=== PATIENT | male | born 1955 | race Caucasian/White ===

== ENCOUNTER 2018-09-02 13:43 | Emergency (ER) | payer BC ==
[2018-09-02] MEDS ORDERED: Sodium Chloride 0.9% 1,000 ML IV SCH (13:50)
[2018-09-02] MEDS ORDERED: fentaNYL 100 MCG/2 ML SDV ONE ×2 (13:51→13:55)
[2018-09-02] MEDS ORDERED: Nitroglycerin/D5W 25 MG/250 ML BOTTLE ONE (13:57)
[2018-09-02] MEDS ORDERED: Aspirin 81 MG Tab.Chew ONE (13:57)
[2018-09-02] MEDS ORDERED: Midazolam 1 MG/ML 2 ML SDV IVPUSH ONE (13:58)
[2018-09-02] MEDS ORDERED: fentaNYL 100 MCG/2 ML SDV IVPUSH ONE (13:58)
[2018-09-02] MEDS ORDERED: Amiodarone In Dextrose,Iso-Osm 150 MG in Premix Bag 1 BAG IV ONE ×2 (13:59)
[2018-09-02] MEDS ORDERED: Nitroglycerin/D5W 25 MG/250 ML BOTTLE IV SCH (14:00)
[2018-09-02] MEDS ORDERED: Aspirin 81 MG Tab.Chew PO ONE (14:01)
--- NOTE | 2018-09-02 14:20 | EDM.PDOC ---
ED HPI GENERAL MEDICAL PROBLEM - General Chief Complaint: Cardiovascular Problem Stated Complaint: [facility] Time Seen by Provider: 09/02/18 13:43 Source of Information: Reports: Patient, EMS History Limitations: Reports: No Limitations - History of Present Illness INITIAL COMMENTS - FREE TEXT/NARRATIVE: 62-year-old male presents to the ED by ambulance. Patient states that about 1240 1245 hrs. mild standard time he developed diaphoresis and severe central chest pain lightheadedness and dizziness. He recognized that his heart was likely going too fast. He is appears this before. 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 It' s unclear a bit as to how long it took him to call the eminence but the call received was at 1313 hrs. They were on scene at 1324 hrs. Left scene at 1335 hrs. Arrived at the hospital at 1348 hrs. Patient during that timeframe was in sustained V. tach the entire timeframe. Of note the patient does have a defibrillator pacemaker in place for the second time. He believes the first one was placed in [facility] in 1999. Had a myocardial infarction in 1998 in [place], [place] and had 2 stents placed any stents and attempt to place a third one failed. He suffered quite significant cardiac damage and did have problems with congestive failure and required a constant pacing device about a year later. The last pacemaker was placed in [facility] about 5 months ago. His is because the batteries failed on the initial one even though he was told that on testing it had 2 years of battery life left in it. Recall ever being shocked by his defibrillator. They told him however that it had gone off on multiple occasions and he was just not aware of it. It appeared while he was in the ED that his defibrillator probably was going off and we can see slight twitching of his pectoralis musculature on the left side but there was no evidence on the monitor that a shock at been sent. As we were preparing to cardiovert/defibrillate him he converted back to paced rhythm in the 70s. He is primarily paced at 70/m. Patient's initial chest pain was 10 out of 10. He was diaphoretic cool and clammy upon arrival. Is alert and oriented and did have good radial pulses. Initial blood pressure was 96 systolic. Once the patient converted he was also in the process of receiving amiodarone 150 mg IV over 10 minutes. Then he was placed on amiodarone drip at 60 mg per hour. He was then placed on a nitroglycerin drip at 10 mcg/m due to sustained chest pain. His blood pressure however fell down to 102 systolic and the nitroglycerin drip was stopped. Chest pain didn't want her down to between 1 and 2 out of 10 over. Of 20-30 minutes after he converted spontaneously. Chest x-ray done shows hyperinflated lung rush marked cardiomegaly. Evidence of mild congestive failure with prominence of the right pulmonary artery. The left costophrenic angle is not visualized due to cardiac border abutting his chest wall. Labs have been drawn but are not yet available. Second ECG reveals atrial sensed ventricular paced rhythm at 70/m. Onset: Today Onset Date: 09/02/18 Onset Time: 12:40 Duration: Minutes: Location: Reports: Chest Quality: Reports: Other (Diaphoresis shortness of breath severe chest pain monitor shows sustained V. tach at 180s) Severity: Severe Improves with: Reports: None Worsens with: Reports: None Context: Reports: Other (Spontaneous occurrence while at work at approximately 1245 hrs.). Denies: Activity, Exercise, Lifting, Sick Contact, Trauma Associated Symptoms: Reports: Chest Pain (10 on a 10 central chest rating to to his back under her shoulder blades), Shortness of Breath, Weakness. 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 (see below) (None.) Chest Pain Score (Numeric/FACES): 7 - Related Data Allergies Allergy/AdvReac Type Severity Reaction Status Date / Time No Known Allergies Allergy Verified 09/02/18 14:42 Home Meds: Home Meds Bumetanide 1 mg PO DAILY 09/02/18 [History] Fenofibrate 145 mg PO DAILY 09/02/18 [History] Hydrocodone/Acetaminophen [Hydrocodon-Acetaminophen 5-325] 1 tab PO Q4H PRN 03/14 [History] Lisinopril [Prinivil] 20 mg PO DAILY 09/02/18 [History] Nabumetone 500 mg PO BID 09/02/18 [History] Spironolactone 50 mg PO DAILY 09/02/18 [History] atorvaSTATin [Lipitor] 40 mg PO DAILY 09/02/18 [History] glipiZIDE [Glipizide Xl] 5 mg PO DAILY 09/02/18 [History] metFORMIN [Glucophage XR] 1,000 mg PO BID 09/02/18 [History] Past Medical History Cardiovascular History: Reports: Heart Failure, High Cholesterol, Hypertension ( Large anterior wall WI apparently at that time 1998), [place], Pacemaker (Pacemaker defibrillator), SOB on Exertion, Stents (2 placed in 1998 [facility]) Respiratory History: Reports: COPD Endocrine/Metabolic History: Reports: Diabetes, Type II (Controlled with metformin and glipizide and diet.), Obesity/BMI 30+ Social & Family History - Living Situation & Occupation Living situation: Reports: Occupation: Employed ED ROS GENERAL - Review of Systems Review Of Systems: See Below Constitutional: Reports: Malaise, Weakness, Fatigue. Denies: Fever, Chills HEENT: Reports: Other (He had recent surgery in his right ear with stitches still present behind the right ear due to a basal cell carcinoma I presumably within the ear canal.) Respiratory: Reports: Shortness of Breath Cardiovascular: Reports: Chest Pain, Blood Pressure Problem (History of present illness), Dyspnea on Exertion, Edema, Lightheadedness. Denies: Claudication, Orthopnea Endocrine: Reports: Fatigue, High Glucose GI/Abdominal: Reports: No Symptoms : Reports: Frequency Musculoskeletal: Reports: Back Pain Skin: Reports: No Symptoms Neurological: Reports: No Symptoms Psychiatric: Reports: No Symptoms Hematologic/Lymphatic: Reports: No Symptoms Immunologic: Reports: No Symptoms ED EXAM, GENERAL - Physical Exam Exam: See Below Exam Limited By: No Limitations General Appearance: Alert, Moderate Distress, Other (Chest pain is 10 out of 10. Monitor shows sustained V. tach in the 180s.) Eye Exam: Bilateral Eye: Normal Inspection Ears: Normal TMs Ear Exam: Bilateral Ear: Other (Patient had recent surgery on his right ear and has sutures behind his right ear. Apparently had a basal cell carcinoma resected from the inner ear canal 6 days ago.) Throat/Mouth: Normal Inspection, Normal Lips, Normal Oropharynx Neck: Normal Inspection, Supple, Non-Tender, Full Range of Motion. No: Carotid Bruit, Lymphadenopathy (L), Lymphadenopathy (R) Respiratory/Chest: Lungs Clear, Respiratory Distress (Moderate tachypnea 26/m initially. O2 sats 98% on 2 L.), Decreased Breath Sounds (Diminished air into the lower 25% lung rush bilaterally.) Cardiovascular: Tachycardia (Monitor shows V. tach in the 180s.), Other (For. Pulses are slightly weak in his feet as compared to the radials.) Peripheral Pulses: 1+: Posterior Tibial (L), Posterior Tibial (R), Dorsalis Pedis (L), Dorsalis Pedis (R), 2+: Radial (L), Radial (R) GI/Abdominal: Normal Bowel Sounds, Soft, Non-Tender, No Organomegaly, Other ( The abdomen is markedly obese. Abdominal girth limits ability to palpate solid organs.) Back Exam: Normal Inspection, Full Range of Motion. No: CVA Tenderness (L), CVA Tenderness (R) Extremities: Normal Inspection, Normal Range of Motion, Non-Tender, No Pedal Edema Neurological: Alert, Oriented, CN II-XII Intact, Normal Cognition Psychiatric: Normal Affect, Normal Mood Skin Exam: Warm, Dry, Intact, Normal Color, No Rash EKG INTERPRETATION EKG Date: 09/02/18 Time: 13:47 Rhythm: Other (Wide-complex tachycardia i.e. V. tach sustained. One 80s) Rate (Beats/Min): 180 Five Points: LAD-Left Five Points Deviation (-56) P-Wave: Absent QRS: Wide EKG Interpretation Comments: Abnormal ECG Course - Vital Signs Last Recorded V/S: Last Vital Signs Temp 36.3 C 09/02/18 13:50 Pulse 72 09/02/18 14:35 Resp 18 09/02/18 13:50 BP 95/62 09/02/18 14:35 Pulse Ox 98 09/02/18 13:50 - Orders/Labs/Meds Orders: Active Orders 24 hr Category Date Time Status EKG 12 Lead [EKG Documentation Completion] [RC] STAT Care 09/02/18 13:57 Active EKG Documentation Completion [RC] STAT Care 09/02/18 14:01 Active CBC W/O DIFF,HEMOGRAM [HEME] MOTH@0700 Lab 09/05/18 07:00 Ordered CBC W/O DIFF,HEMOGRAM [HEME] MOTH@0700 Lab 09/09/18 07:00 Ordered CBC W/O DIFF,HEMOGRAM [HEME] MOTH@0700 Lab 09/12/18 07:00 Ordered CBC W/O DIFF,HEMOGRAM [HEME] MOTH@0700 Lab 09/16/18 07:00 Ordered CBC W/O DIFF,HEMOGRAM [HEME] MOTH@0700 Lab 09/19/18 07:00 Ordered CBC W/O DIFF,HEMOGRAM [HEME] MOTH@0700 Lab 09/23/18 07:00 Ordered LACTIC ACID [CHEM] Stat Lab 09/02/18 15:32 Received Amiodarone In Dextrose,Iso-Osm [Nexterone in Dextrose Med 09/02/18 14:00 Active 360 MG/200 ML] 360 mg in 200 ml IV ASDIRECTED Heparin Sodium/D5W [Heparin 25,000 Units in D5W 500 ML] Med 09/02/18 14:45 Active 25,000 units in 500 ml IV TITRATE Sodium Chloride 0.9% [Normal Saline] 1,000 ml Med 09/02/18 13:50 Active IV ASDIRECTED Medication Orders Amiodarone HCl/Dextrose (Nexterone In Dextrose 360 Mg/200 Ml) 360 mg in 200 mls @ 33.333 mls/hr IV ASDIRECTED DULCE MARIA; Protocol Last Admin: 09/02/18 14:07 Dose: 33.333 mls/hr Sodium Chloride (Normal Saline) 1,000 mls @ 250 mls/hr IV ASDIRECTED DULCE MARIA Last Admin: 09/02/18 14:03 Dose: 250 mls/hr Heparin Sodium/Dextrose (Heparin 25,000 Units In D5w 500 Ml) 25,000 units in 500 mls @ 20 mls/hr IV TITRATE [facility] Labs: Laboratory Tests 09/02/18 09/02/18 09/02/18 Range/Units 14:22 14:22 14:22 WBC 10.81 H (4.23-9.07) K/mm3 RBC 5.17 (4.63-6.08) M/mm3 Hgb 15.7 (13.7-17.5) gm/L Hct 46.6 (40.1-51.0) % MCV 90.1 (79.0-92.2) fl MCH 30.4 (25.7-32.2) pg MCHC 33.7 (32.2-35.5) g/dl RDW Std Deviation 44.0 H (35.1-43.9) fL Plt Count 308 (163-337) K/mm3 MPV 9.2 L (9.4-12.3) fl Neutrophils % (Manual) 77 H (40-60) % Band Neutrophils % 0 (0-10) % Lymphocytes % (Manual) 15 L (20-40) % Atypical Lymphs % 0 % Monocytes % (Manual) 7 (2-10) % Eosinophils % (Manual) 1 (0.8-7.0) % Basophils % (Manual) 0 L (0.2-1.2) Platelet Estimate Adequate Plt Morphology Comment Normal RBC Morph Comment Normal PT 11.9 (9.5-12.1) SECONDS INR 1.09 APTT 28 (24-31) SECONDS Sodium 140 (136-145) mEq/L Potassium 4.9 (3.5-5.1) mEq/L Chloride 104 (98-107) mEq/L Carbon Dioxide 23 (21-32) mEq/L Anion Gap 17.9 H (5-15) BUN 27 H (7-18) mg/dL Creatinine 1.7 H (0.7-1.3) mg/dL Est Cr Clr Drug Dosing 53.16 mL/min Estimated GFR (MDRD) 41 (>60) mL/min BUN/Creatinine Ratio 15.9 (14-18) Glucose 211 H (80-115) mg/dL Calcium 9.9 (8.5-10.1) mg/dL Magnesium 1.6 L (1.8-2.4) mg/dl Total Bilirubin 0.8 (0.2-1.0) mg/dL AST 32 (15-37) U/L ALT 61 (16-63) U/L Alkaline Phosphatase 67 (46-116) U/L CK-MB (CK-2) 2.4 (0-3.6) ng/ml Troponin I 0.060 H* (0.00-0.056) ng/mL NT-Pro-B Natriuret Pep (0-125) pg/mL Total Protein 7.5 (6.4-8.2) g/dl Albumin 4.3 (3.4-5.0) g/dl Globulin 3.2 gm/dL Albumin/Globulin Ratio 1.3 (1-2) 09/02/18 Range/Units 14:22 WBC (4.23-9.07) K/mm3 RBC (4.63-6.08) M/mm3 Hgb (13.7-17.5) gm/L Hct (40.1-51.0) % MCV (79.0-92.2) fl MCH (25.7-32.2) pg MCHC (32.2-35.5) g/dl RDW Std Deviation (35.1-43.9) fL Plt Count (163-337) K/mm3 MPV (9.4-12.3) fl Neutrophils % (Manual) (40-60) % Band Neutrophils % (0-10) % Lymphocytes % (Manual) (20-40) % Atypical Lymphs % % Monocytes % (Manual) (2-10) % Eosinophils % (Manual) (0.8-7.0) % Basophils % (Manual) (0.2-1.2) Platelet Estimate Plt Morphology Comment RBC Morph Comment PT (9.5-12.1) SECONDS INR APTT (24-31) SECONDS Sodium (136-145) mEq/L Potassium (3.5-5.1) mEq/L Chloride (98-107) mEq/L Carbon Dioxide (21-32) mEq/L Anion Gap (5-15) BUN (7-18) mg/dL Creatinine (0.7-1.3) mg/dL Est Cr Clr Drug Dosing mL/min Estimated GFR (MDRD) (>60) mL/min BUN/Creatinine Ratio (14-18) Glucose (80-115) mg/dL Calcium (8.5-10.1) mg/dL Magnesium (1.8-2.4) mg/dl Total Bilirubin (0.2-1.0) mg/dL AST (15-37) U/L ALT (16-63) U/L Alkaline Phosphatase (46-116) U/L CK-MB (CK-2) (0-3.6) ng/ml Troponin I (0.00-0.056) ng/mL NT-Pro-B Natriuret Pep 820 H (0-125) pg/mL Total Protein (6.4-8.2) g/dl Albumin (3.4-5.0) g/dl Globulin gm/dL Albumin/Globulin Ratio (1-2) Meds: Medications Generic Name Dose Route Start Last Admin Trade Name Goldie PRN Reason Stop Dose Admin Amiodarone HCl/Dextrose 360 mg in 200 mls @ 33.333 mls/hr 09/02/18 14:00 03/14 14:07 Nexterone In Dextrose 360 Mg/200 Ml IV 33.333 mls/hr ASDIRECTED DULCE MARIA Administration Protocol Sodium Chloride 1,000 mls @ 250 mls/hr 09/02/18 13:50 09/02/18 14:03 Normal Saline IV 250 mls/hr ASDIRECTED DULCE MARIA Administration Heparin Sodium/Dextrose 25,000 units in 500 mls @ 20 mls/hr 09/02/18 14:45 Heparin 25,000 Units In D5w 500 Ml IV TITRATE DULCE MARIA 1,000 UNITS/HR Discontinued Medications Generic Name Dose Route Start Last Admin Trade Name Goldie PRN Reason Stop Dose Admin Aspirin 324 mg 09/02/18 14:01 09/02/18 14:01 Aspirin PO 09/02/18 14:02 324 mg ONETIME ONE Administration Fentanyl Confirm 09/02/18 13:51 09/02/18 14:13 Sublimaze Administered 09/02/18 13:52 Not Given Dose 100 mcg .ROUTE .STK-MED ONE Fentanyl 100 mcg 09/02/18 13:58 09/02/18 13:59 Sublimaze IVPUSH 09/02/18 13:59 50 mcg ONETIME ONE Administration Heparin Sodium (Porcine) 5,000 units 09/02/18 14:44 09/02/18 14:49 Heparin Sodium IVPUSH 09/02/18 14:45 5,000 units ONETIME ONE Administration Amiodarone HCl/Dextrose 150 mg 100 mls @ 400 mls/hr 09/02/18 13:59 09/02/18 13:55 / Premix IV 09/02/18 14:13 400 mls/hr NOW ONE Administration Nitroglycerin/Dextrose 25 mg in 250 mls @ 6 mls/hr 09/02/18 14:00 09/02/18 14 :31 Nitroglycerin 25 Mg/D5w 250 Ml IV 0 mcg/min TITRATE DULCE MARIA 0 mls/hr Titration Protocol 10 MCG/MIN Midazolam HCl 2 mg 09/02/18 13:58 09/02/18 13:51 Versed 1 Mg/Ml IVPUSH 09/02/18 13:59 2 mg ONETIME ONE Administration - Radiology Interpretation Free Text/Narrative:: 62-year-old male arrives in the ED per ambulance in sustained V. tach. He started to feel symptomatic approximately 1240- 1245 hrs. today. He states he was walking in the shop with a rollover holes in each hand which wouldn't wait more than 20 pounds. She has a history of coronary disease having had myocardial infarction in 1998 when he was in [facility]. He had cardiac stenting done at that time [address] a third stent but could not get it in. He thinks that about a year later he required a defibrillator pacemaker placement. His allergies has had patient rhythm since that time. His first pacemaker battery proximal be 5 months ago when he was in [facility]. He had a new pacemaker placed at that time past apparently it's a [employer] pacemaker. Patient had IVs started in the ED and had received Versed 4 mg IV and then it was recognized that the first IV went interstitial. Second IVs were started. He received 100 g of fentanyl in preparation for etomidate next to provide sedation to have emergent diversion/defibrillation done. As we were ready to push the etomidate he converted back to a paced rhythm in the 80s. His chest pain eased up after this from a 10 gradually down to a 12 out of 10. Patient had amiodarone 150 mg given over 8 minutes and then 60 mg per hour drip started. Nitroglycerin drip started at 10 mcg/m due to persistent chest pain and he did receive 4 baby aspirins chewed. is no longer on Plavix after research of his med list. Decision made because of persistent chest pain and the possibility of thrombosis versus demand ischemia from the rapid rate to heparinize him. He was given 5000 unit bolus and 1000 units an hour. Chest x-ray reveals marked cardiomegaly him signs of congestive failure with prominence of the right pulmonary artery. Labs are pending. Colton with orchard worker at [facility] in [place] as well as Dr. Buckley hospitalist and Dr. Lockett in the ED. The patient be transferred to [facility] in [place] per helicopter service and he will go to the ED first for cardiology consult particular if he is still having chest pain. - Re-Assessments/Exams Free Text/Narrative Re-Assessment/Exam: 09/02/18 15:24 Labs reveal a white count of 10.81 with 77% neutrophils and no band cells reported. Hemoglobin is 15.7 with hematocrit of 46.6. MCV is 90.1. Platelet count 308,000. PT was 11.9 with an INR 1.09. PTT is 28. Sodium 140 with a potassium of 4.9. Chloride 104 with a bicarbonate of 23. And a gap is mildly elevated at 17.9. BUN was 27. Creatinine was 1.7. GFR is estimated to be 41 i.e. stage III chronic kidney disease. Glucose is elevated at 211. Patient is a known type II diabetic. Calcium is 9.9. Magnesium slightly low at 1.6. Bilirubin is 0.8. AST is 32. ALT is 61. Alkaline phosphatase normal at 67. CK- MB fraction is normal at 2.4. Troponin I 0.060. BNP is 820. Total protein is 7.5 with an albumin fraction of 4.3. Departure - Departure Time of Disposition: 14:50 Disposition: DC/Tfer to Acute Hospital 02 Reason for Transfer *Q: Other Condition: Fair Clinical Impression: Ventricular tachycardia (paroxysmal), Acute coronary syndrome Forms: ED Department Discharge Additional Instructions: Patient transferred to [facility] in [facility] for cardiology consultation and management. Try and obtain records from [facility] on pacemaker recently placed 5 months ago. Critical Care Note - Critical Care Note Total Time (mins): 60 - My Orders Last 24 Hours: My Active Orders 09/02/18 13:50 Sodium Chloride 0.9% [Normal Saline] 1,000 ml IV ASDIRECTED 09/02/18 13:57 EKG 12 Lead [EKG Documentation Completion] [RC] STAT 09/02/18 14:00 Amiodarone In Dextrose,Iso-Osm [Nexterone in Dextrose 360 MG/200 ML] 360 mg in 200 ml IV ASDIRECTED 09/02/18 14:01 EKG Documentation Completion [RC] STAT 09/02/18 14:45 Heparin Sodium/D5W [Heparin 25,000 Units in D5W 500 ML] 25,000 units in 500 ml IV TITRATE 09/02/18 15:32 LACTIC ACID [CHEM] Stat 09/05/18 07:00 CBC W/O DIFF,HEMOGRAM [HEME] MOTH@0700 19 07:00 CBC W/O DIFF,HEMOGRAM [HEME] MOTH@69909/12/18 07:00 CBC W/O DIFF,HEMOGRAM [HEME] MOTH@69909/16/18 07:00 CBC W/O DIFF,HEMOGRAM [HEME] MOTH@69909/19/18 07:00 CBC W/O DIFF,HEMOGRAM [HEME] MOTH@0709/23/18 07:00 CBC W/O DIFF,HEMOGRAM [HEME] MOTH@699 - Assessment/Plan Last 24 Hours: My Active Orders 09/02/18 13:50 Sodium Chloride 0.9% [Normal Saline] 1,000 ml IV ASDIRECTED 09/02/18 13:57 EKG 12 Lead [EKG Documentation Completion] [RC] STAT 09/02/18 14:00 Amiodarone In Dextrose,Iso-Osm [Nexterone in Dextrose 360 MG/200 ML] 360 mg in 200 ml IV ASDIRECTED 09/02/18 14:01 EKG Documentation Completion [RC] STAT 09/02/18 14:45 Heparin Sodium/D5W [Heparin 25,000 Units in D5W 500 ML] 25,000 units in 500 ml IV TITRATE 09/02/18 15:32 LACTIC ACID [CHEM] Stat 09/05/18 07:00 CBC W/O DIFF,HEMOGRAM [HEME] MOTH@69909/09/18 07:00 CBC W/O DIFF,HEMOGRAM [HEME] MOTH@69909/12/18 07:00 CBC W/O DIFF,HEMOGRAM [HEME] MOTH@69909/16/18 07:00 CBC W/O DIFF,HEMOGRAM [HEME] MOTH@69909/19/18 07:00 CBC W/O DIFF,HEMOGRAM [HEME] MOTH@69909/23/18 07:00 CBC W/O DIFF,HEMOGRAM [HEME] MOTH@699
--- NOTE | 2018-09-02 14:28 | CR ---
Chest: Portable view of the chest was obtained. Comparison: No prior chest x-ray. Heart size at the upper limits of normal. Upper mediastinum is normal. AICD is present. Lungs are clear with no acute parenchymal change. Impression: 1. Nothing acute is seen. Diagnostic code #2
[2018-09-02] MEDS ORDERED: Heparin Sodium 5,000 Units/ML Vial IVPUSH ONE (14:44)
[2018-09-02] MEDS ORDERED: Heparin Sodium/D5W 25,000 UNITS/500 ML BAG IV SCH (14:45)
[2018-09-02] MEDS ORDERED: Midazolam 1 MG/ML 5 ML SDV ONE (15:50)
== END 2018-09-02 15:20 ==
LOC: JD.ED 13:43
DX: I24.9 Acute ischemic heart disease, unspecified (principal); I47.2 Ventricular tachycardia; I11.0 Hypertensive heart disease with heart failure; I50.9 Heart failure, unspecified; E11.9 Type 2 diabetes mellitus without complications; I25.2 Old myocardial infarction; Z95.0 Presence of cardiac pacemaker; Z79.84 Long term (current) use of oral hypoglycemic drugs; Z79.899 Other long term (current) drug therapy; Z87.891 Personal history of nicotine dependence
CPT/HCPCS: 36415; 71045; 80053; 82553; 83605; 83735; 83880; 84484; 85007; 85027; 85610; 85730; 93005; 96365; 96367; 96375; 96376; 99285; A9270; J0282; J1644; J2250; J3010; J3490; J7040; 93010; 99291

== ENCOUNTER 2018-11-06 13:44 | Emergency (ER) | payer BC ==
[2018-11-06] MEDS ORDERED: LORazepam 2 MG/ML SDV IVPUSH ONE ×2 (14:03→14:42)
[2018-11-06] MEDS ORDERED: Sodium Chloride 0.9% 10 ML Syringe FLUSH PRN (14:04)
[2018-11-06] MEDS ORDERED: Magnesium Sulfate/Water 2 GM in Premix Bag 1 BAG IV ONE (14:08)
[2018-11-06] MEDS ORDERED: Sodium Chloride 0.9% 500 ML IV ONE (14:08)
[2018-11-06] MEDS ORDERED: Amiodarone In Dextrose,Iso-Osm 200 ML IV SCH (14:15)
--- NOTE | 2018-11-06 14:32 | EDM.PDOC ---
ED HPI GENERAL MEDICAL PROBLEM - General Chief Complaint: Chest Pain Stated Complaint: CHEST PAIN Time Seen by Provider: 11/06/18 13:55 Source of Information: Reports: Patient, RN Notes Reviewed - History of Present Illness INITIAL COMMENTS - FREE TEXT/NARRATIVE: 63-year-old gentleman had onset of mild anterior chest discomfort radiating to his shoulders at work a short time ago. He also had some very mild dizziness with this. He knew that "something was wrong". He went through something similar with this with much more significant discomfort about 2 months ago which required stabilization at this ED and then transfer to a [facility]. He does have history of coronary artery disease. He suffered an IN about 20 years ago had some stents placed at that time. He then had a pacemaker placed about 10 years ago and then replacement pacemaker 5 months ago. 2 months ago when he presented to this ED he was in a wide complex tachycardia presumed to be V. tach. After reviewing the record I am aware that there was preparation for cardioversion when he did medically cardiovert after amiodarone IV. It sounds like his admission at the [facility] was relatively uneventful. He has been doing well up until recurrence of symptoms just a short time ago. Arrived at our ED by private vehicle. At the time of my evaluation he is resting on the cot fairly comfortably. He states he "feels better. Discomfort is gone. He is not short of breath. He denies nausea vomiting or diaphoresis. He has not recently been ill with cough sore throat fever or chills. Chest Pain Score (Numeric/FACES): 3 - Related Data Allergies Allergy/AdvReac Type Severity Reaction Status Date / Time No Known Allergies Allergy Verified 09/02/18 14:42 Home Meds: Home Meds Bumetanide 1 mg PO DAILY 09/02/18 [History] Fenofibrate 145 mg PO DAILY 09/02/18 [History] Hydrocodone/Acetaminophen [Hydrocodon-Acetaminophen 5-325] 1 tab PO Q4H PRN 03/14 [History] Lisinopril [Prinivil] 20 mg PO DAILY 09/02/18 [History] Nabumetone 500 mg PO BID 09/02/18 [History] Spironolactone 50 mg PO DAILY 09/02/18 [History] atorvaSTATin [Lipitor] 40 mg PO DAILY 09/02/18 [History] glipiZIDE [Glipizide Xl] 5 mg PO DAILY 09/02/18 [History] metFORMIN [Glucophage XR] 1,000 mg PO BID 09/02/18 [History] Past Medical History Cardiovascular History: Reports: Heart Failure, High Cholesterol, Hypertension, IN, Pacemaker, SOB on Exertion, Stents Respiratory History: Reports: COPD Other Musculoskeletal History: torn rotator cuff on right side Endocrine/Metabolic History: Reports: Diabetes, Type II, Obesity/BMI 30+ - Past Surgical History Cardiovascular Surgical History: Reports: AICD, Coronary Artery Stent, Pacer Social & Family History - Family History Family Medical History: Noncontributory - Tobacco Use Smoking Status *Q: Never Smoker - Caffeine Use Caffeine Use: Reports: Coffee - Living Situation & Occupation Living situation: Reports: Occupation: Employed ED ROS GENERAL - Review of Systems Review Of Systems: See Below Constitutional: Denies: Fever, Chills, Diaphoresis HEENT: Denies: Sinus Problem, Throat Pain Respiratory: Reports: Shortness of Breath (Mild, now better). Denies: Cough Cardiovascular: Reports: Chest Pain (Gone), Lightheadedness (Mild now better) GI/Abdominal: Denies: Abdominal Pain, Nausea, Vomiting Musculoskeletal: Reports: Shoulder Pain (Gone). Denies: Arm Pain, Leg Pain Skin: Reports: No Symptoms Neurological: Reports: Dizziness (Mild, gone). Denies: Trouble Speaking, Difficulty Walking, Weakness ED EXAM, GENERAL - Physical Exam Exam: See Below General Appearance: Alert, No Apparent Distress Eye Exam: Bilateral Eye: PERRL Throat/Mouth: Normal Inspection, Normal Oropharynx Head: Atraumatic Neck: Supple, Full Range of Motion Respiratory/Chest: No Respiratory Distress, Lungs Clear, Normal Breath Sounds Cardiovascular: Tachycardia GI/Abdominal: Soft, Non-Tender Back Exam: No: CVA Tenderness (L), CVA Tenderness (R) Extremities: Normal Inspection. No: Pedal Edema, Leg Pain, Increased Warmth, Redness Neurological: Alert, Oriented, No Motor/Sensory Deficits Skin Exam: Warm, Dry, Normal Color EKG INTERPRETATION EKG Date: 11/06/18 Rhythm: Other (White complex tachycardia, regular, presumed V. tach) P-Wave: Absent QRS: Wide ST-T: Elevated Course - Vital Signs Last Recorded V/S: Last Vital Signs Temp 98.3 F 11/06/18 13:52 Pulse 133 H 11/06/18 13:52 Resp 20 11/06/18 13:52 BP 125/101 H 11/06/18 13:52 Pulse Ox 99 11/06/18 13:52 - Orders/Labs/Meds Orders: Active Orders 24 hr Category Date Time Status EKG 12 Lead [EKG Documentation Completion] [RC] STAT Care 11/06/18 14:04 Active Peripheral IV Care [RC] . DIRECTED Care 11/06/18 14:04 Active Peripheral IV Insertion Adult [OM.PC] Stat Oth 11/06/18 14:04 Ordered Labs: Laboratory Tests 11/06/18 11/06/18 11/06/18 Range/Units 14:00 14:00 14:00 WBC 9.08 H (4.23-9.07) K/mm3 RBC 4.53 L (4.63-6.08) M/mm3 Hgb 14.0 (13.7-17.5) gm/L Hct 42.7 (40.1-51.0) % MCV 94.3 H (79.0-92.2) fl MCH 30.9 (25.7-32.2) pg MCHC 32.8 (32.2-35.5) g/dl RDW Std Deviation 48.7 H (35.1-43.9) fL Plt Count 313 (163-337) K/mm3 MPV 9.4 (9.4-12.3) fl Neut % (Auto) 59.1 (34.0-67.9) % Lymph % (Auto) 28.3 (21.8-53.1) % [place] % (Auto) 9.8 (5.3-12.2) % Eos % (Auto) 2.3 (0.8-7.0) Baso % (Auto) 0.2 (0.1-1.2) % Neut # (Auto) 5.36 (1.78-5.38) K/mm3 Lymph # (Auto) 2.57 (1.32-3.57) K/mm3 [place] # (Auto) 0.89 H (0.30-0.82) K/mm3 Eos # (Auto) 0.21 (0.04-0.54) K/mm3 Baso # (Auto) 0.02 (0.01-0.08) K/mm3 Sodium 139 (136-145) mEq/L Potassium 4.7 (3.5-5.1) mEq/L Chloride 104 (98-107) mEq/L Carbon Dioxide 25 (21-32) mEq/L Anion Gap 14.7 (5-15) BUN 41 H (7-18) mg/dL Creatinine 1.7 H (0.7-1.3) mg/dL Est Cr Clr Drug Dosing 52.47 mL/min Estimated GFR (MDRD) 41 (>60) mL/min BUN/Creatinine Ratio 24.1 H (14-18) Glucose 156 H (80-115) mg/dL Calcium 9.5 (8.5-10.1) mg/dL Magnesium 2.0 (1.8-2.4) mg/dl Total Bilirubin 0.5 (0.2-1.0) mg/dL AST 36 (15-37) U/L ALT 58 (16-63) U/L Alkaline Phosphatase 45 L (46-116) U/L Troponin I < 0.017 (0.00-0.056) ng/mL NT-Pro-B Natriuret Pep 597 H (0-125) pg/mL Total Protein 7.6 (6.4-8.2) g/dl Albumin 4.4 (3.4-5.0) g/dl Globulin 3.2 gm/dL Albumin/Globulin Ratio 1.4 (1-2) Meds: Medications Discontinued Medications Generic Name Dose Route Start Last Admin Trade Name Freq PRN Reason Stop Dose Admin Amiodarone HCl/Dextrose Confirm 11/06/18 14:00 11/06/18 14:15 Nexterone In Dextrose 150 Mg/100 Ml Administered 11/06/18 14:01 100 mls/hr Dose Administration 100 mls @ as directed IV .STK-MED ONE Magnesium Sulfate 2 gm/ Premix 50 mls @ 25 mls/hr 11/06/18 14:08 11/06/18 14: 15 IV 11/06/18 16:07 25 mls/hr ONETIME ONE Administration Sodium Chloride 500 mls @ 999 mls/hr 11/06/18 14:08 11/06/18 14:18 Normal Saline IV 11/06/18 14:38 999 mls/hr .BOLUS ONE Administration Amiodarone HCl/Dextrose 360 mg in 200 mls @ 33.333 mls/hr 11/06/18 14:15 14:23 Nexterone In Dextrose 360 Mg/200 Ml IV 33.333 mls/hr ASDIRECTED DULCE MARIA Administration Protocol Lorazepam 1 mg 11/06/18 14:03 11/06/18 14:24 Ativan IVPUSH 11/06/18 14:04 1 mg ONETIME ONE Administration Lorazepam 1 mg 11/06/18 14:42 11/06/18 14:49 Ativan IVPUSH 11/06/18 14:43 1 mg ONETIME ONE Administration Sodium Chloride 10 ml 11/06/18 14:04 11/06/18 14:19 Saline Flush FLUSH 10 ml ASDIRECTED PRN Administration Keep Vein Open - Re-Assessments/Exams Free Text/Narrative Re-Assessment/Exam: 11/06/18 18:05. IV access was obtained immediately upon patient arrival. Patient informed me that he already was on amiodarone in addition to his other medications. We did give amiodarone 150 mg IV over 10 minutes and then did start with a 1 mg/m drip. Mag sulfate 2 g IV was ordered, 500 mL normal saline bolus. Blood pressure was stable and remained stable. O2 sats were good in the upper 90s. Troponin, other labs did eventually come back relatively normal. Record was briefly reviewed from his September 02 visit were I see that his presenting rhythm was similar but much faster with a rate to 175-180. Overall 12 -lead rhythm pattern similar to EKG of today. I did discuss this with Dr. Arboleda, seamer operator production utility worker for [facility]. He does agree that patient should be transferred to their hospital. Dr. Philippe, accepting hospitalist. He was transferred out [facility] flight crew. 11/06/18 20:13. I was notified by the flight crew after they did get back to [place] that he did convert out of the V. tach almost immediately after getting loaded into the helicopter. Pacer then took over and he paced with a rate of around 70 for the remainder of transfer to [facility]. Departure - Departure Time of Disposition: 15:20 Disposition: DC/Tfer to Acute Hospital 02 Reason for Transfer *Q: Other Condition: Serious Clinical Impression: Ventricular tachycardia (paroxysmal) Referrals: PCP,Not In Area [Primary Care Provider] - Forms: ED Department Discharge - My Orders Last 24 Hours: My Active Orders 11/06/18 14:04 EKG 12 Lead [EKG Documentation Completion] [RC] STAT Peripheral IV Care [RC] . DIRECTED Peripheral IV Insertion Adult [OM.PC] Stat - Assessment/Plan Last 24 Hours: My Active Orders 11/06/18 14:04 EKG 12 Lead [EKG Documentation Completion] [RC] STAT Peripheral IV Care [RC] . DIRECTED Peripheral IV Insertion Adult [OM.PC] Stat
--- NOTE | 2018-11-06 15:56 | CR ---
Chest: Portable view of the chest was obtained. Comparison: Prior chest x-ray of 09/02/18. Heart size is slightly enlarged. Upper mediastinum is normal. Pacemaker is noted. Lungs are clear with no acute parenchymal change. Impression: 1. Findings as noted above. No significant change from previous chest x-ray is seen. Diagnostic code #2
== END 2018-11-06 15:38 ==
LOC: JD.ED 13:44
DX: I47.2 Ventricular tachycardia (principal); I11.0 Hypertensive heart disease with heart failure; I50.9 Heart failure, unspecified; I25.2 Old myocardial infarction; Z95.0 Presence of cardiac pacemaker; J44.9 Chronic obstructive pulmonary disease, unspecified; Z79.899 Other long term (current) drug therapy
CPT/HCPCS: 36415; 71045; 80053; 83735; 83880; 84484; 85025; 93005; 96365; 96368; 96375; 99285; J0282; J2060; J3475; J7040; 93010

== ENCOUNTER 2019-02-11 10:17 | Emergency (ER) | payer BC ==
[2019-02-11] MEDS ORDERED: HYDROmorphone 1 MG/ML Syringe IM ONE (10:30)
[2019-02-11] MEDS ORDERED: Promethazine 25 MG/ML SDV IM ONE (10:30)
--- NOTE | 2019-02-11 10:30 | EDM.PDOC ---
ED HPI GENERAL MEDICAL PROBLEM - General Chief Complaint: Back Pain or Injury Stated Complaint: BACK PAIN Time Seen by Provider: 02/11/19 10:25 Source of Information: Reports: Patient History Limitations: Reports: No Limitations - History of Present Illness INITIAL COMMENTS - FREE TEXT/NARRATIVE: 63-year-old male presents to the ED for evaluation of diffuse low back pain. Patient was sent over from [facility] [place] [facility] by Dr. Erin Burr. Patient states she's having difficulty voiding particularly from the standing position. When he sits he feels he can empty his bladder satisfactorily. He has never lost control of his bowel or bladder function. He has had intermittent problems with low back pain off and on for many years. Over the weekend he was working on the gutters on his house and awkward position and he feels that he twisted his back and this is resulted in current back problems. Pain is radiating into both but talks along the distribution of the SI joints. Patient can barely walk at present due to pain. He has not been taking anything for the pain is Tylenol doesn't work and Motrin makes his stomach upset. Onset: Gradual Onset Date: 02/07/19 Duration: Day(s):, Getting Worse Location: Reports: Back (Diffuse lower back pain. Perhaps slightly worse on the left as compared to the right.) Quality: Reports: Ache, Throbbing Severity: Moderate (8 out of 10) Improves with: Reports: Rest (Pain is present even at rest.) Worsens with: Reports: Other, Movement Context: Reports: Other (Twisting and in awkward position working on the gutters on his house 4 days ago.). Denies: Activity (Particularly walking and standing or coughing.), Exercise, Lifting, Sick Contact, Trauma Associated Symptoms: Reports: Other (Difficulty voiding from the standing position. 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: Reports: Other (see below) (None.) - Related Data Allergies Allergy/AdvReac Type Severity Reaction Status Date / Time No Known Allergies Allergy Verified 02/11/19 10:23 Home Meds: Home Meds Bumetanide 1 mg PO DAILY 09/02/18 [History] Fenofibrate 145 mg PO DAILY 09/02/18 [History] Hydrocodone/Acetaminophen [Hydrocodon-Acetaminophen 5-325] 1 tab PO Q4H PRN 03/14 [History] Lisinopril [Prinivil] 20 mg PO DAILY 09/02/18 [History] Nabumetone 500 mg PO BID 09/02/18 [History] Spironolactone 50 mg PO DAILY 09/02/18 [History] atorvaSTATin [Lipitor] 40 mg PO DAILY 09/02/18 [History] glipiZIDE [Glipizide Xl] 5 mg PO DAILY 09/02/18 [History] metFORMIN [Glucophage XR] 1,000 mg PO BID 09/02/18 [History] Diclofenac Sodium [Voltaren] 75 mg PO BIDMEALS #20 tab.cr 02/11/19 [Rx] oxyCODONE HCl/Acetaminophen [Percocet 10-325 mg Tablet] 1 - 2 each PO Q4H PRN # 28 tablet 02/11/19 [Rx] predniSONE [Deltasone] 20 mg PO ASDIRECTED #15 tablet 02/11/19 [Rx] Past Medical History Cardiovascular History: Reports: Heart Failure, High Cholesterol, Hypertension, [place], Pacemaker, SOB on Exertion, Stents Other Cardiovascular History: Currently not on Plavix. Respiratory History: Reports: COPD Other Musculoskeletal History: torn rotator cuff on right side Endocrine/Metabolic History: Reports: Diabetes, Type II (Currently on glipizide and metformin.), Obesity/BMI 30+ - Past Surgical History Cardiovascular Surgical History: Reports: AICD, Coronary Artery Stent, Pacer Social & Family History - Family History Family Medical History: Noncontributory - Caffeine Use Caffeine Use: Reports: Coffee - Living Situation & Occupation Living situation: Reports: Occupation: Employed [employer] [employer] - Review of Systems Review Of Systems: See Below Constitutional: Reports: Malaise, Fatigue (From not sleeping well.), Decreased Appetite. Denies: Fever, Chills HEENT: Reports: No Symptoms Respiratory: Reports: Shortness of Breath, Cough (Nonproductive at times.). Denies: Wheezing, Pleuritic Chest Pain Cardiovascular: Reports: Blood Pressure Problem, Dyspnea on Exertion ( Chronically), Edema, Lightheadedness, Other. Denies: Chest Pain, Claudication, Orthopnea (Usually runs low due to the medications he is on) Endocrine: Reports: Fatigue GI/Abdominal: Reports: No Symptoms : Reports: Frequency, Other (Currently having difficulty voiding lies in the standing position due to severe back pain that he is experiencing) Musculoskeletal: Reports: Back Pain (Chronic low back pain much worse the last 4 days.), Joint Pain (Knees hips neck and shoulders at times.) Skin: Reports: No Symptoms Neurological: Reports: No Symptoms Psychiatric: Reports: No Symptoms Hematologic/Lymphatic: Reports: No Symptoms Immunologic: Reports: No Symptoms ED EXAM,LOWER BACK PAIN/INJURY - Physical Exam Exam: See Below Exam Limited By: No Limitations General Appearance: Alert, WD/WN, Anxious, Moderate Distress, Other (I can smell ketones on his breath.) Eye Exam: Bilateral Eye: Normal Inspection Respiratory/Chest: No Respiratory Distress, Lungs Clear, Normal Breath Sounds, No Accessory Muscle Use, Decreased Breath Sounds Cardiovascular: Regular Rate, Rhythm, No Gallop, No Murmur, No Rub. No: Normal Peripheral Pulses (Breath sounds are diminished the lower 20% of lung rush bilaterally.) GI/Abdominal: Normal Bowel Sounds, Soft, Non-Tender (Moderately obese. This limits ability to palpate solid organs.), No Organomegaly, No Distention, No Mass, Other Back Exam: Paraspinal Tenderness (Mild paraspinal muscle tenderness over the L3- L5 facet joints bilaterally per. Not necessarily worse on one side versus the other.) Extremities: Pedal Edema Neurological: Alert (2+ pitting edema both lower extremities), Normal Mood/ Affect, Normal Dorsiflexion, CN II-XII Intact, Normal Plantar Flexion. No: Normal Gait, Normal Reflexes, Oriented x 3 DTR - Lower Extremities: 0: Ankle (R), Ankle (L), 1+: Knee (R), Knee (L) Psychiatric: Normal Affect, Normal Mood, Other Skin Exam: Warm, Dry (In a good deal of discomfort.), Intact, Normal Color, No Rash Course - Vital Signs Last Recorded V/S: Last Vital Signs Temp 36.5 C 02/11/19 10:21 Pulse 62 02/11/19 10:21 Resp 18 02/11/19 10:21 BP 114/72 02/11/19 10:21 Pulse Ox 99 02/11/19 10:21 - Orders/Labs/Meds Orders: Active Orders 24 hr Category Date Time Status AAA Screen [US] Stat Exams 02/11/19 11:50 Ordered Meds: Medications Discontinued Medications Generic Name Dose Route Start Last Admin Trade Name Freq PRN Reason Stop Dose Admin Hydromorphone HCl 1 mg 02/11/19 10:30 02/11/19 10:36 Dilaudid IM 02/11/19 10:31 1 mg ONETIME ONE Administration Promethazine HCl 25 mg 02/11/19 10:30 02/11/19 10:37 Phenergan IM 02/11/19 10:31 25 mg ONETIME ONE Administration - Radiology Interpretation Free Text/Narrative:: 63-year-old male presents to the ED at the request of walking clinic physician from [facility]. Patient has developed severe diffuse low back pain and having difficulty voiding from the standing position. When he sits he feels he is emptying his bladder completely. Patient has type 2 diabetes control with metformin and glipizide. He has had chronic problems with his low back with intermittent flareups of severe pain. He states he was working on his gutters on his home on Sunday, February 07 and was an awkward position for a period of time and he feels this is what caused his back pain to flareup. Currently having bilateral back low back pain in the lumbar spine from L3-L5 and pain in both sacroiliac joint areas. No radiculopathy below this. Plan CT of his lumbar spine will be carried out with contrast. We'll give him an IM injection of Dilaudid 1 mg with Phenergan 25 mg for acute pain relief. - Re-Assessments/Exams Free Text/Narrative Re-Assessment/Exam: 02/11/19 11:22 CT of the lumbar spine is been completed. It reveals degenerative changes in all 5 levels. There is specific particularly significant facet joint arthropathy bilaterally from L3-L5. There is severe degenerative disc disease at L4-L5 level with sclerosis of the inferior posterior aspect of L4 and the superior posterior aspect of L5 vertebral body of unclear etiology. No severe disc bulge is appreciated. Of note there is a significant aneurysm of the distal aorta. Will await radiologists report. 02/11/19 11:39 radiologists reports that there is moderate disc space narrowing at the T11-12 level with endplate osteophytes noted anteriorly and laterally. No central canal stenosis or neural foraminal stenosis is seen. At the T12-L1 level severe disc space narrowing is appreciated posterior disc is preserved. Mild degenerative apophyseal changes appreciated. Endplate osteophytes are seen anteriorly and laterally area no central canal stenosis is seen. The neural foramina on the right side is mildly narrowed. Left side is normal at L1-2 level mild posterior disc space narrowing is seen. Posterior disc is preserved mild degenerative apophyseal changes appreciated. The neural foramina are felt to be patent. At the L2-3 level minimal spondylolisthesis by several millimeters is seen. Mild disc space narrowing is appreciated. Severe degenerative apophyseal changes noted. Mild circumferential disc bulge is seen. Posterior disc maintains a mildly concave margin. No central canal stenosis or neural foraminal stenosis is seen. Endplate osteophytes are appreciated anteriorly and laterally. At the L4-L5 level severe disc space narrowing is noted with circumferential disc bulge. Prominent posterior spur is noted to the right of midline indenting the anterior thecal sac. Mild central canal stenosis is noted. Degenerative spur appears to correspond with some compression upon the exiting right L4 nerve root outside the neural foramina. Right neural foramen is also mildly narrowed. Left neural foramen is narrow but nerve root appears to exit without compromise. Moderate degenerative apophyseal changes are appreciated at the L5- S1 level posterior disc space narrowing noted. Diffuse posterior disc bulges noted to the left of the midline this slightly effaces the anterior thecal sac. No cyst central canal stenosis is seen fairly severe left-sided neural foraminal stenosis is seen causing compromise upon the exiting L5 nerve root the right nerve root appears to exit without compromise. No fractures are identified. 02/11/19 11:[address] Aguirre --radiologist and he agrees there is aneurysmal dilatation of the distal aorta. Therefore we'll try and have an ultrasound while he is in the department. 02/11/19 11:55 I have spoken with the cardiac monitor technician and he believes that he can reformat the CT done of the lumbar spine so that the aorta is better visualized and possibly the patient would not require a ultrasound. His pain is better but still has significant discomfort in his lower back at rest. 02/11/19 13:[address] was able to have a better look at his aortic aneurysm. The abdominal aortic aneurysm is seen within the mid and distal aorta and does not involve the iliac arteries. It's maximum anterior posterior dimension is 4.3 cm. He will need yearly ultrasound of his aorta and he was so advised. Sounds like he is having yearly echocardiograms with Dr. Castillo automatic lehr operator in [place] as well. Departure - Departure Time of Disposition: 13:01 Disposition: Home, Self-Care 01 Condition: Fair Clinical Impression: Abdominal aortic aneurysm (AAA) greater than 39 mm in diameter, Degenerative disc disease at L5-S1 level Low back pain Qualifiers: Chronicity: acute Back pain laterality: bilateral Sciatica presence: without sciatica Qualified Code(s): M54.5 - Low back pain - Discharge Information *PRESCRIPTION DRUG MONITORING PROGRAM REVIEWED*: Not Applicable *COPY OF PRESCRIPTION DRUG MONITORING REPORT IN PATIENT JOSEPH: Not Applicable Prescriptions: Diclofenac Sodium [Voltaren] 75 mg PO BIDMEALS #20 tab.cr oxyCODONE HCl/Acetaminophen [Percocet 10-325 mg Tablet] 1 - 2 each PO Q4H PRN # 28 tablet PRN Reason: Low back pain predniSONE [Deltasone] 20 mg PO ASDIRECTED #15 tablet Referrals: Nona Stern MD [Primary Care Provider] - Forms: ED Department Discharge, ED Return to Work/School Form Additional Instructions: Evaluation in the emergency room today in regards to acute onset of severe lower back pain. You feel this may have been aggravated by upward position while working on your gutters of your house [address] of the lumbar spine reveals advanced degenerative changes throughout the lumbar spine but particularly severe disc degenerative disease at L4-L5 and L5-S1 levels. There is evidence of the left-sided nerve root irritation from disc on the L4-L5 level. There is plenty of degenerative arthritis in the facet joints. Suggest treatment to be prednisone 20 mg twice daily breakfast and bedtime for the next 5 days and then once in the morning only for another 5 days to relieve pain and inflammation. Percocet tabs 10/325 mg one or 2 every 4-6 hours necessary for pain relief. Suggest use of Voltaren 75 mg twice daily for the next 10 days to relieve pain and inflammation lower back. CT also identified an aneurysm of your lower abdominal aorta. We were able to reformat the CT films done on her lumbar spine that would provide acurate measurement of the size of his aortic aneurysm. The aortic aneurysm is in the lower portion of the aorta and its is not marked involve the iliac arteries. It measures 4.3 cm in its largest diameter. Surgery is indicated if it goes over 5 cm. It is suggested that you have an ultrasound of your aorta carried out on a yearly basis. - My Orders Last 24 Hours: My Active Orders 02/11/19 11:50 AAA Screen [US] Stat - Assessment/Plan Last 24 Hours: My Active Orders 02/11/19 11:50 AAA Screen [US] Stat
--- NOTE | 2019-02-11 12:46 | CT ---
CT lumbar spine Technique: Multiple axial sections were obtained from the top of T11 inferiorly through the L5-S1 disc. Reconstructed sagittal and coronal images were reviewed. Comparison: No prior lumbar spine imaging. Findings: T11-12: Moderate disc space narrowing is seen. Endplate osteophytes are noted anteriorly and laterally. Mild degenerative apophyseal change is seen. No central canal stenosis or neural foraminal stenosis is seen. T12-L1: Severe disc space narrowing is seen. Posterior disc is preserved. Mild degenerative apophyseal change is seen. Endplate osteophytes are seen anterior and laterally. No central canal stenosis is seen. Neural foramen on the right side is mildly narrowed. Left neural foramen is patent. L1-L2: Mild posterior disc space narrowing is seen. Posterior disc is preserved. Mild degenerative apophyseal change is noted. No central canal stenosis is seen. Neural foramina are felt to be patent. L2-L3: Minimal spondylolisthesis by several millimeters is seen. Mild disc space narrowing is noted. Severe degenerative apophyseal change is noted. Mild circumferential disc bulge is seen. Posterior disc maintains a mildly concave margin. No central canal stenosis or neural foraminal stenosis is seen. Endplate osteophytes are seen anteriorly and laterally. L3-L4: Moderate to severe disc space narrowing is seen. Circumferential disc bulge is noted. Mild anterior and posterior osteophytes are seen. No central canal stenosis is seen. Neural foramina are felt to be patent where the nerve roots exit. L4-L5: Severe disc space narrowing is noted with circumferential disc bulge. Prominent posterior spur is noted to the right of midline indenting the anterior thecal sac. Mild central canal stenosis is noted. Degenerative spur appears to correspond to some compression upon the exiting right L4 nerve root outside the neural foramina. Right neural foramen is also mildly narrow. Left neural foramen is narrowed but nerve root appears to exit without compromise. Moderate degenerative apophyseal change is seen. L5-S1: Posterior disc space narrowing noted. Diffuse posterior disc bulge is noted to the left of midline. This slightly effaces the left anterior thecal sac. No central canal stenosis is seen. Fairly severe left-sided neural foraminal stenosis is seen causing compromise upon the exiting L5 nerve root. Right nerve root appears to exit without compromise. No fracture is identified. Abdominal aortic aneurysm is seen within the mid and distal aorta. Maximum AP dimension is 4.3 cm. Aneurysm does not extend into the iliac arteries. Impression: 1. Diffuse degenerative change as noted above. Several levels of nerve root compromise as described above. 2. 4.3 cm abdominal aortic aneurysm. 3. Nothing acute is seen. Diagnostic code #3
== END 2019-02-11 13:25 | disposition home or self-care (01) ==
LOC: JD.ED 10:17
DX: I71.4 Abdominal aortic aneurysm, without rupture (principal); M51.37 Other intervertebral disc degeneration, lumbosacral region; I11.0 Hypertensive heart disease with heart failure; I50.9 Heart failure, unspecified; I25.2 Old myocardial infarction; Z95.0 Presence of cardiac pacemaker; J44.9 Chronic obstructive pulmonary disease, unspecified; Z79.899 Other long term (current) drug therapy
CPT/HCPCS: 72131; 96372; 99283; J1170; J2550; 99285

== ENCOUNTER 2019-02-18 09:47 | Emergency (ER) | payer BC ==
[2019-02-18] MEDS ORDERED: Lidocaine 2% Jelly 10 ML Urojet MUCMEM ONE (09:55)
[2019-02-18] MEDS ORDERED: Metoclopramide 10 MG/2 ML SDV IVPUSH ONE (10:13)
[2019-02-18] MEDS ORDERED: HYDROmorphone 1 MG/ML Syringe IVPUSH ONE (10:13)
--- NOTE | 2019-02-18 10:13 | EDM.PDOC ---
ED HPI GENERAL MEDICAL PROBLEM - General Chief Complaint: Genitourinary Problem Stated Complaint: URINARY PROBLEMS Time Seen by Provider: 02/18/19 09:55 Source of Information: Reports: Patient, Family (spouse) History Limitations: Reports: No Limitations - History of Present Illness INITIAL COMMENTS - FREE TEXT/NARRATIVE: 63-year-old male presents to the ED with acute onset of urinary retention. Unable to void this morning since getting up. He did go to work but had to leave work and come to the ED due to increasing lower abdominal pain and inability to void.. He did develop some acute right inguinal pain yesterday with right testicular pain about 0930 hrs. yesterday morning. This forced him to leave the workplace as well. He was extremely nauseated and continued to have the feeling of need to void most of the day yesterday. He did keep down a little bit of an egg salad sandwich last night. Otherwise has had very little to eat or drink. Tenderness to have right flank pain. Associated mild nausea. No history of kidney stones. But it since that time that he's been unable to void. He never had any problems voiding before. No hesitancy. Nocturia usually 1. Was recently seen through the ED for lumbar spine pain and identified to have a aneurysm of the distal aorta. Some clear whether there was any kidney stones identified on CT. Limited CT of the lumbar spine I will have a look at it. Patient was started on Percocet tablets 10/325mg one or 2 every 4-6 hours for pain relief from degenerative disc disease and arthritis in his lower back last week. This of course could cause constipation and slowing of bladder function. Onset: Sudden Onset Date: 02/17/19 (Acute right inguinal abdominal pain with right-sided testicular pain yesterday morning about 0930 hrs. with associated nausea with and no vomiting. Development of urinary retention overnight.) Duration: Hour(s): (But 24 hours.), Getting Worse Location: Reports: Abdomen, Back (Diffuse lower abdominal pain due to urinary retention. Flank pain right lower back pain radiating to right groin), Radiates to ( and testicle right groin and testicle) Quality: Reports: Ache Severity: Moderate (8 out of 10) Improves with: Reports: None Worsens with: Reports: None Context: Reports: Other (Spontaneous occurrence of right flank pain radiating down to the right groin and testicle yesterday morning associate with feeling of need to void but unable to do so. No noted blood in the urine. Presents to the ED this morning with urinary retention). Denies: Activity, Exercise, Lifting, Sick Contact, Trauma Associated Symptoms: Reports: Loss of Appetite, Nausea/Vomiting, Other (Severe lower abdominal pain due to urinary retention.). 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 (see below) (9.) Right Scrotum Pain Score (Numeric/FACES): 8 - Related Data Allergies Allergy/AdvReac Type Severity Reaction Status Date / Time No Known Allergies Allergy Verified 02/18/19 09:53 Home Meds: Home Meds Bumetanide 1 mg PO DAILY 09/02/18 [History] Fenofibrate 145 mg PO DAILY 09/02/18 [History] Hydrocodone/Acetaminophen [Hydrocodon-Acetaminophen 5-325] 1 tab PO Q4H PRN 03/14 [History] Lisinopril [Prinivil] 20 mg PO DAILY 09/02/18 [History] Nabumetone 500 mg PO BID 09/02/18 [History] Spironolactone 50 mg PO DAILY 09/02/18 [History] atorvaSTATin [Lipitor] 40 mg PO DAILY 09/02/18 [History] glipiZIDE [Glipizide Xl] 5 mg PO DAILY 09/02/18 [History] metFORMIN [Glucophage XR] 1,000 mg PO BID 09/02/18 [History] Diclofenac Sodium [Voltaren] 75 mg PO BIDMEALS #20 tab.cr 02/11/19 [Rx] oxyCODONE HCl/Acetaminophen [Percocet 10-325 mg Tablet] 1 - 2 each PO Q4H PRN # 28 tablet 02/11/19 [Rx] predniSONE [Deltasone] 20 mg PO ASDIRECTED #15 tablet 02/11/19 [Rx] Tamsulosin HCl [Flomax] 0.4 mg PO DAILY #30 cap.er.24h 02/18/19 [Rx] Past Medical History HEENT History: Reports: None Cardiovascular History: Reports: Heart Failure, High Cholesterol, Hypertension, PA, Pacemaker, SOB on Exertion, Stents Other Cardiovascular History: Currently not on Plavix. Respiratory History: Reports: COPD Gastrointestinal History: Reports: None Genitourinary History: Reports: None Musculoskeletal History: Reports: Arthritis Other Musculoskeletal History: torn rotator cuff on right side Neurological History: Reports: None Psychiatric History: Reports: None Endocrine/Metabolic History: Reports: Diabetes, Type II, Obesity/BMI 30+ Hematologic History: Reports: None Immunologic History: Reports: None Oncologic (Cancer) History: Reports: Basal Cell Carcinoma Dermatologic History: Reports: None - Infectious Disease History Infectious Disease History: Reports: None - Past Surgical History Head Surgeries/Procedures: Reports: None Cardiovascular Surgical History: Reports: AICD, Coronary Artery Stent, Pacer Social & Family History - Family History Family Medical History: Noncontributory - Tobacco Use Smoking Status *Q: Never Smoker - Caffeine Use Caffeine Use: Reports: Coffee - Recreational Drug Use Recreational Drug Use: No - Living Situation & Occupation Living situation: Reports: Occupation: Employed ED ROS GENERAL - Review of Systems Review Of Systems: See Below Constitutional: Reports: Malaise, Weakness, Fatigue, Decreased Appetite. Denies : Fever, Chills HEENT: Reports: Glasses Respiratory: Reports: No Symptoms Cardiovascular: Reports: No Symptoms Endocrine: Reports: Fatigue, Other (History of type 2 diabetes control with glipizide and metformin) GI/Abdominal: Reports: Abdominal Pain (Diffuse lower abdominal pain felt to the umbilicus. Diffuse lower back pain associated with this inguinal pain and referred pain to the right testicle.) : Reports: Urinary Retention (Feeling of need to void but unable to do so.), Other Musculoskeletal: Reports: Back Pain ( Presents clinically with acute urinary retention right flank low back pain any into the right groin and testicle on the right side ) Skin: Reports: No Symptoms Neurological: Reports: No Symptoms Psychiatric: Reports: No Symptoms Hematologic/Lymphatic: Reports: No Symptoms Immunologic: Reports: No Symptoms ED EXAM, RENAL/ - Physical Exam Exam: See Below Exam Limited By: No Limitations General Appearance: Alert, WD/WN, Moderate Distress (He is in obvious discomfort. Very stoic fellow), Other (Vital signs show him to be afebrile with a pulse of 60 in sinus. BP 117/83 sats 100% on room air) Eye Exam: Bilateral Eye: Other (Patient has amblyopia.) Respiratory/Chest: No Respiratory Distress, Lungs Clear, Normal Breath Sounds, Crackles Cardiovascular: Normal Peripheral Pulses, Regular Rate, Rhythm, No Edema, No Gallop, No Murmur, No Rub, Other (Recently diagnosed with a aneurysm of the distal aorta on CT of the lumbar spine. I believe it measured 4.5 cm) GI/Abdominal: Distended (And dull to percussion up to the umbilicus.), Guarding , Tender (Lower abdomen suprapubic tenderness.), Abnormal Bowel Sounds (Bowel sounds are very quiet sent.) (Male) Exam: No Hernia. No: Testicular Tenderness (L), Testicular Tenderness (R) Back Exam: Decreased Range of Motion. No: CVA Tenderness (L), CVA Tenderness (R ), Muscle Spasm Extremities: Normal Inspection, Normal Range of Motion, Non-Tender Neurological: Alert, Oriented, CN II-XII Intact, Normal Cognition Psychiatric: Other (In a good deal of discomfort/pain.) Skin Exam: Warm, Dry, Intact, Normal Color, No Rash Course - Vital Signs Last Recorded V/S: Last Vital Signs Temp 35.9 C 02/18/19 09:54 Pulse 60 02/18/19 09:54 Resp 16 02/18/19 09:54 BP 117/83 02/18/19 09:54 Pulse Ox 100 02/18/19 09:54 - Orders/Labs/Meds Orders: Active Orders 24 hr Category Date Time Status Insert Saba Catheter [Insert Urinary Catheter] [OM.PC] Care 02/18/19 10:45 Ordered Q24H Urinary Catheter Assessment [RC] ASDIRECTED Care 02/18/19 10:38 Active Dextrose 5%-0.9% NaCl [Dextrose 5%-Normal Saline] 1,000 Med 02/18/19 10:15 Active ml IV ASDIRECTED Medication Orders Dextrose/Sodium Chloride (Dextrose 5%-Normal Saline) 1,000 mls @ 150 mls/hr IV ASDIRECTED [facility] Last Admin: 02/18/19 10:24 Dose: 150 mls/hr Labs: Laboratory Tests 02/18/19 Range/Units 10:05 Urine Color Yellow (Yellow) Urine Appearance Clear (Clear) Urine pH 6.0 (5.0-8.0) Ur Specific [place] 1.020 (1.005-1.030) Urine Protein Negative (Negative) Urine Glucose (UA) Trace H (Negative) Urine Ketones Negative (Negative) Urine Occult Blood Negative (Negative) Urine Nitrite Negative (Negative) Urine Bilirubin Negative (Negative) Urine Urobilinogen 0.2 (0.2-1.0) Ur Leukocyte Esterase Negative (Negative) Urine RBC 0-5 (0-5) /hpf Urine WBC 0-5 (0-5) /hpf Ur Epithelial Cells 0-5 (0-5) /hpf Urine Bacteria Few (FEW) /hpf Hyaline Casts 5-10 H (0-5) /lpf Urine Mucus Few (FEW) /hpf Meds: Medications Generic Name Dose Route Start Last Admin Trade Name Freq PRN Reason Stop Dose Admin Dextrose/Sodium Chloride 1,000 mls @ 150 mls/hr 02/18/19 10:15 02/18/19 10:24 Dextrose 5%-Normal Saline IV 150 mls/hr ASDIRECTED DULCE MARIA Administration Discontinued Medications Generic Name Dose Route Start Last Admin Trade Name Freq PRN Reason Stop Dose Admin Hydromorphone HCl 1 mg 02/18/19 10:13 02/18/19 10:24 Dilaudid IVPUSH 02/18/19 10:14 1 mg ONETIME ONE Administration Lidocaine HCl 10 ml 02/18/19 09:55 02/18/19 10:20 Xylocaine 2% Jelly MUCMEM 02/18/19 09:56 10 ml ONETIME ONE Administration Metoclopramide HCl 10 mg 02/18/19 10:13 02/18/19 10:24 Reglan IVPUSH 02/18/19 10:14 10 mg ONETIME ONE Administration Tamsulosin HCl 0.4 mg 02/18/19 11:56 02/18/19 12:00 Flomax PO 02/18/19 11:57 0.4 mg ONETIME ONE Administration - Radiology Interpretation Free Text/Narrative:: 63-year-old male presents to the ED with a history of being unable to void since getting up this morning. Further history identifies acute onset of right flank right inguinal and testicular pain about 9:30 yesterday morning while at work associated with nausea but no vomiting. He slept most of the day when he had to leave work. He remains nauseated this morning and presents to the ED with acute urinary retention having not been able to void since last evening. The history is suggestive of a right renal stone occurring yesterday morning and possibly the cause of acute urinary retention. The history does not suggest any problems with prostatism. On exam his bladder is nearly up to his umbilicus. Bladder scan suggests between 608 150 mils of urine in the bladder. Saba catheter placement. IV will be D5 normal saline 150 mils per hour. Given Dilaudid 1 mg IV and Reglan 10 mg IV for nausea and pain relief. CT the abdomen will be performed per renal protocol looking for a stone at the right UVJ. - Re-Assessments/Exams Free Text/Narrative Re-Assessment/Exam: 02/18/19 11:27 Urinalysis is essentially negative. There is a trace of glucose and 5-10 hyaline casts but no reported blood or leukocyte Esterase. Patient has drained approximately 800 mils of urine from the bladder. He still having significant back pain but no further abdominal pain. CT of the abdomen and pelvis done per renal protocol reveals the liver to be within normal limits. Gallbladder contains no calcified gallstones. Pancreas appears normal spleen appears normal. There is a 1.46 cm cyst off the inferior pole of the left kidney. There are no stones in either kidney. There is a small calcification on the left side which appears to be in the renal artery as it enters the kidney. I.e. atherosclerosis without significant stenosis of the renal arteries. There is no dilatation of either ureter to indicate stone. Saba catheter in urinary bladder without any obvious stone surrounding the catheter. No free fluid in the pelvis. Does have diverticula of the sigmoid colon without any evidence of diverticulitis. Mildly increased stool appreciated in transverse colon and right hemicolon. Appendix is seen and is normal. Discussed the findings with the patient and his . Decision made to remove the Saba catheter at this time. I'm going to place him on Flomax 0.4 mg now and then take every night at bedtime for the next 30 days to see if this will help him pass his urine normally. If he has not voided normally by 8:00 tonight he is to return to the ED for Saba catheter placement and will require urological consultation and MRI of his lower back to see if there is any compression of the sacral nerves that would cause a neurogenic bladder. He is currently not taking that much of the Percocet. States he takes a half a tablet when he does take it and usually only in the mornings. Her bladder inhibition from narcotic is unlikely. Prostate did not look all that enlarged on CT exam and nurses report that the Saba catheter into the urinary bladder without much obstruction. Note given to excuse the patient from work today. Departure - Departure Time of Disposition: 11:54 Disposition: Home, Self-Care 01 Condition: Fair Clinical Impression: Acute urinary retention, Degenerative disc disease, lumbar - Discharge Information *PRESCRIPTION DRUG MONITORING PROGRAM REVIEWED*: Not Applicable *COPY OF PRESCRIPTION DRUG MONITORING REPORT IN PATIENT JOSEPH: Not Applicable Prescriptions: Tamsulosin HCl [Flomax] 0.4 mg PO DAILY #30 cap.er.24h Instructions: Acute Urinary Retention, Male, [id number] Referrals: Nona Stern MD [Primary Care Provider] - Forms: ED Department Discharge, ED Return to Work/School Form Additional Instructions: Evaluation the emergent today in regards to diffuse lower abdominal pain and inability to pass her urine since getting up this morning. Identified degenerative disc disease and arthritis in your lower back on CT scan done last week. Possibility of this causing urinary retention is remote because there was no central disc patient or compression of the spinal cord identified on CT. However problems persist then MRI of your lumbar spine will be required to make sure that the cord is not being compressed by a herniated disc. The history suggests the pain came on acutely yesterday morning suggestive of possible kidney stone. CT of the abdomen done today does not show any signs of kidney stones or stone in either ureter or the bladder. Urinalysis also showed no signs of infection or blood. Decision made to remove the Saba catheter before discharge and give you a trial of trying to pass her urine on your own over the next 8 hours. If you're unable to pass her urine in the next 8 hours or so you' ll need to return to the ED for repeat catheter placement and then the catheter would remain in place until follow-up with urology services can be performed. You're given a tablet call Flomax or 0.4 mg in the ED and I watched her take 1 every night at bedtime for the next month as this will help her pass her water normally. - My Orders Last 24 Hours: My Active Orders 02/18/19 10:15 Dextrose 5%-0.9% NaCl [Dextrose 5%-Normal Saline] 1,000 ml IV ASDIRECTED 02/18/19 10:38 Urinary Catheter Assessment [RC] ASDIRECTED 02/18/19 10:45 Insert Saba Catheter [Insert Urinary Catheter] [OM.PC] Q24H - Assessment/Plan Last 24 Hours: My Active Orders 02/18/19 10:15 Dextrose 5%-0.9% NaCl [Dextrose 5%-Normal Saline] 1,000 ml IV ASDIRECTED 02/18/19 10:38 Urinary Catheter Assessment [RC] ASDIRECTED 02/18/19 10:45 Insert Saba Catheter [Insert Urinary Catheter] [OM.PC] Q24H
[2019-02-18] MEDS ORDERED: Dextrose 5%-0.9% NaCl 1,000 ML IV SCH (10:15)
--- NOTE | 2019-02-18 11:38 | CT ---
CT abdomen and pelvis Technique: Multiple axial sections were obtained from above the dome of the diaphragm inferiorly through the pubic symphysis. Intravenous and oral contrast was not utilized. Study performed as a ureteral stone protocol. Findings: Kidneys show no abnormal calcifications. Small cyst is noted off the posterior left kidney measuring approximately 1.4 cm in size. No hydronephrosis is seen. Ureters show no abnormal calcifications. Visualized lung bases show nothing acute. Noncontrast appearance of the liver appears within normal limits. Spleen is also within normal limits. Adrenal glands contain no nodule. Mid and distal abdominal aorta shows evidence of aneurysmal dilatation measuring 4.2 cm in AP dimension. No extension into the common iliac arteries is seen. Aneurysm begins slightly below the level of the renal arteries. No retroperitoneal adenopathy or mesenteric abnormalities are seen. Pancreas is normal. No pelvic mass or adenopathy is seen. Mild diverticuli are seen within the sigmoid colon without diverticulitis. No free fluid or inflammatory change is seen. Saba catheter is present within the bladder. Bone window settings were reviewed which show scattered degenerative change within the spine. Appendix is seen which is normal in size. No free fluid or inflammatory change is seen. Impression: 1. No renal calculi, ureteral dilatation or ureteral stone is seen. 2. Mid and distal abdominal aortic aneurysm beginning below the level of the renal vessels measuring 4.2 cm in AP dimension. 3. Other incidental findings as noted above. Nothing acute is appreciated. Diagnostic code #2
[2019-02-18] MEDS ORDERED: Tamsulosin 0.4 MG Cap.ER PO ONE (11:56)
== END 2019-02-18 12:08 | disposition home or self-care (01) ==
LOC: JD.ED 09:47
DX: R33.9 Retention of urine, unspecified (principal); M51.36 Other intervertebral disc degeneration, lumbar region; I11.0 Hypertensive heart disease with heart failure; I50.9 Heart failure, unspecified; E78.00 Pure hypercholesterolemia, unspecified; I25.2 Old myocardial infarction; E11.9 Type 2 diabetes mellitus without complications; Z79.84 Long term (current) use of oral hypoglycemic drugs; Z79.899 Other long term (current) drug therapy
CPT/HCPCS: 51702; 51798; 74176; 81001; 96361; 96374; 96375; 99284; A9270; J1170; J2765; J7042

== ENCOUNTER 2019-02-25 15:01 | Emergency (ER) | payer BC ==
[2019-02-25] MEDS ORDERED: Sodium Chloride 0.9% 10 ML Syringe FLUSH PRN (15:17)
[2019-02-25] MEDS ORDERED: Sodium Chloride 0.9% 250 ML IV ONE (16:56)
[2019-02-25] MEDS ORDERED: HYDROmorphone 0.5 MG/0.5 ML Syringe IVPUSH ONE (17:10)
--- NOTE | 2019-02-25 17:21 | EDM.PDOC ---
ED HPI GENERAL MEDICAL PROBLEM - General Chief Complaint: Chest Pain Stated Complaint: CHEST PAIN/SOB Time Seen by Provider: 02/25/19 15:17 Source of Information: Reports: Patient, Provider, RN Notes Reviewed - History of Present Illness INITIAL COMMENTS - FREE TEXT/NARRATIVE: 63 year old male has been referred to ED by Dr Stern from [facility] for eval. and recomendation of transfer to [facility]. He has not been feeling well for about 2 weeks with increasing dyspnea, especially with any type of exertion. He does have hx of CAD, Htn, type 2 diabetes. His Cardiolgist recomended he increase his bumex from 1 mg daily up to 3 mg daily for last Sunday and Sunday, 2 and 3 days ago. He does feel mildly dizzy and lightheaded when standing and walking. He has been having mild ant. chest tightness more frequently the past few days. No abd pain, prod. cough, fever or chills. Upper Abdomen Pain Score (Numeric/FACES): 5 - Related Data Allergies Allergy/AdvReac Type Severity Reaction Status Date / Time No Known Allergies Allergy Verified 02/18/19 09:53 Home Meds: Home Meds Bumetanide 1 mg PO DAILY 09/02/18 [History] Hydrocodone/Acetaminophen [Hydrocodon-Acetaminophen 5-325] 1 tab PO Q4H PRN 03/14 [History] Lisinopril [Prinivil] 20 mg PO DAILY 09/02/18 [History] Spironolactone 50 mg PO DAILY 09/02/18 [History] atorvaSTATin [Lipitor] 40 mg PO DAILY 09/02/18 [History] metFORMIN [Glucophage XR] 1,000 mg PO BID 09/02/18 [History] oxyCODONE HCl/Acetaminophen [Percocet 10-325 mg Tablet] 1 - 2 each PO Q4H PRN # 28 tablet 02/11/19 [Rx] Tamsulosin HCl [Flomax] 0.4 mg PO DAILY #30 cap.er.24h 02/18/19 [Rx] Amiodarone [Cordarone] 400 mg PO DAILY 02/25/19 [History] Aspirin [Halfprin] 81 mg PO DAILY 02/25/19 [History] Metoprolol Succinate [Toprol XL 100mg] 200 mg PO DAILY 02/25/19 [History] Mexiletine [Mexitil] 200 mg PO TID 02/25/19 [History] Past Medical History HEENT History: Reports: None Cardiovascular History: Reports: Heart Failure, High Cholesterol, Hypertension, [place], Pacemaker, SOB on Exertion, Stents Other Cardiovascular History: Currently not on Plavix. Respiratory History: Reports: COPD Gastrointestinal History: Reports: None Genitourinary History: Reports: None Musculoskeletal History: Reports: Arthritis Other Musculoskeletal History: torn rotator cuff on right side Neurological History: Reports: None Psychiatric History: Reports: None Endocrine/Metabolic History: Reports: Diabetes, Type II, Obesity/BMI 30+ Hematologic History: Reports: None Immunologic History: Reports: None Oncologic (Cancer) History: Reports: Basal Cell Carcinoma Dermatologic History: Reports: None - Infectious Disease History Infectious Disease History: Reports: None - Past Surgical History Head Surgeries/Procedures: Reports: None Cardiovascular Surgical History: Reports: AICD, Coronary Artery Stent, Pacer, Other (See Below) Other Cardiovascular Surgeries/Procedures: recently diagnosed with AAA Social & Family History - Family History Family Medical History: Noncontributory - Tobacco Use Smoking Status *Q: Former Smoker Used Tobacco, but Quit: Yes Month/Year Tobacco Last Used: 2004 - Caffeine Use Caffeine Use: Reports: Coffee, Soda - Recreational Drug Use Recreational Drug Use: No - Living Situation & Occupation Living situation: Reports: Occupation: Employed ED ROS GENERAL - Review of Systems Review Of Systems: See Below Constitutional: Denies: Fever, Chills, Diaphoresis HEENT: Denies: Throat Pain Respiratory: Reports: Shortness of Breath, Cough. Denies: Wheezing, Sputum Cardiovascular: Reports: Chest Pain (mild tightness), Dyspnea on Exertion. Denies: Edema GI/Abdominal: Reports: Decreased Appetite. Denies: Abdominal Pain, Nausea Musculoskeletal: Reports: Back Pain (mild chronic). Denies: Shoulder Pain, Arm Pain, Leg Pain Skin: Reports: No Symptoms Neurological: Reports: Dizziness. Denies: Numbness, Tingling, Trouble Speaking , Difficulty Walking ED EXAM, GENERAL - Physical Exam Exam: See Below General Appearance: Alert, No Apparent Distress Throat/Mouth: Normal Inspection, Normal Oropharynx Head: Atraumatic. No: Facial Swelling Neck: Supple, Full Range of Motion, Other (No JVD) Respiratory/Chest: Respiratory Distress (Mild tachypnea at time of my exam) Cardiovascular: Regular Rate, Rhythm GI/Abdominal: Soft, Non-Tender Extremities: Normal Inspection, No Pedal Edema. No: Leg Pain, Increased Warmth , Redness Neurological: Alert, Oriented, No Motor/Sensory Deficits Skin Exam: Warm, Dry, Normal Color EKG INTERPRETATION EKG Date: 02/25/19 Rhythm: Other (paced rythm) Rate (Beats/Min): 72 QRS: Wide ST-T: Elevated (inf. leads) Course - Vital Signs Last Recorded V/S: Last Vital Signs Temp 97.3 F 02/25/19 15:10 Pulse 71 02/25/19 15:10 Resp 11 L 02/25/19 15:10 BP 86/61 L 02/25/19 15:10 Pulse Ox 100 02/25/19 15:10 - Orders/Labs/Meds Orders: Active Orders 24 hr Category Date Time Status Peripheral IV Care [RC] . DIRECTED Care 02/25/19 15:18 Active Peripheral IV Insertion Adult [OM.PC] Stat Oth 02/25/19 15:18 Ordered Labs: Laboratory Tests 02/25/19 02/25/19 02/25/19 Range/Units 15:15 15:15 15:30 WBC 18.90 H (4.23-9.07) K/mm3 RBC 4.87 (4.63-6.08) M/mm3 Hgb 15.3 (13.7-17.5) gm/L Hct 44.9 (40.1-51.0) % MCV 92.2 (79.0-92.2) fl MCH 31.4 (25.7-32.2) pg MCHC 34.1 (32.2-35.5) g/dl RDW Std Deviation 45.1 H (35.1-43.9) fL Plt Count 278 (163-337) K/mm3 MPV 9.2 L (9.4-12.3) fl Neut % (Auto) 78.1 H (34.0-67.9) % Lymph % (Auto) 14.3 L (21.8-53.1) % Ransom % (Auto) 5.8 (5.3-12.2) % Eos % (Auto) 0.4 L (0.8-7.0) Baso % (Auto) 0.1 (0.1-1.2) % Neut # (Auto) 14.76 H (1.78-5.38) K/mm3 Lymph # (Auto) 2.70 (1.32-3.57) K/mm3 Ransom # (Auto) 1.10 H (0.30-0.82) K/mm3 Eos # (Auto) 0.08 (0.04-0.54) K/mm3 Baso # (Auto) 0.02 (0.01-0.08) K/mm3 Manual Slide Review Normal smear Sodium 134 L (136-145) mEq/L Potassium 5.2 H (3.5-5.1) mEq/L Chloride 100 (98-107) mEq/L Carbon Dioxide 18 L (21-32) mEq/L Anion Gap 21.2 H (5-15) BUN 56 H (7-18) mg/dL Creatinine 2.4 H (0.7-1.3) mg/dL Est Cr Clr Drug Dosing 37.16 mL/min Estimated GFR (MDRD) 27 (>60) mL/min BUN/Creatinine Ratio 23.3 H (14-18) Glucose 253 H (80-115) mg/dL Calcium 9.5 (8.5-10.1) mg/dL Total Bilirubin 0.6 (0.2-1.0) mg/dL AST 20 (15-37) U/L ALT 55 (16-63) U/L Alkaline Phosphatase 52 (46-116) U/L Troponin I < 0.017 (0.00-0.056) ng/mL NT-Pro-B Natriuret Pep 266 H (0-125) pg/mL Total Protein 7.0 (6.4-8.2) g/dl Albumin 3.9 (3.4-5.0) g/dl Globulin 3.1 gm/dL Albumin/Globulin Ratio 1.3 (1-2) Meds: Medications Discontinued Medications Generic Name Dose Route Start Last Admin Trade Name Freq PRN Reason Stop Dose Admin Hydromorphone HCl 0.5 mg 02/25/19 17:10 02/25/19 17:15 Dilaudid IVPUSH 02/25/19 17:11 0.5 mg ONETIME ONE Administration Sodium Chloride 250 mls @ 999 mls/hr 02/25/19 16:56 02/25/19 17:07 Normal Saline IV 02/25/19 17:11 999 mls/hr .BOLUS ONE Administration Sodium Chloride 10 ml 02/25/19 15:17 02/25/19 15:14 Saline Flush FLUSH 10 ml ASDIRECTED PRN Administration Keep Vein Open - Re-Assessments/Exams Free Text/Narrative Re-Assessment/Exam: 02/25/19 17:44 EKG showed paced rythm. He was hyptensive with BP readings in the 80's systolic. We did give a 250 NS bolus and that did bring his BP up to around 100 systolic. Trop was normal, other labs including BUN, creat. elevated, abnl. He is ill enough to warrent admission. His current and background medical condition is complicated enough that he should go to [facility] where Cardiology, prior medical records and hx, other specialists available as needed. Dr Bonilla, Hospitalist [facility] accepting Phys. Transferred to [facility] per patient and request. His Vertical Contour Band Saw Operator Dr De Souza is at [facility]. He was sent by ground ambulance. Departure - Departure Time of Disposition: 17:20 Disposition: DC/Tfer to [facility] 02 Reason for Transfer *Q: Other Condition: Serious Clinical Impression: Dehydration, Renal insufficiency, Atypical chest pain Hypotension Qualifiers: Hypotension type: unspecified hypotension type Qualified Code(s): I95.9 - Hypotension, unspecified Referrals: Nona Stern MD [Primary Care Provider] - Forms: ED Department Discharge - My Orders Last 24 Hours: My Active Orders 02/25/19 15:18 Peripheral IV Care [RC] . DIRECTED Peripheral IV Insertion Adult [OM.PC] Stat - Assessment/Plan Last 24 Hours: My Active Orders 02/25/19 15:18 Peripheral IV Care [RC] . DIRECTED Peripheral IV Insertion Adult [OM.PC] Stat
--- NOTE | 2019-02-26 09:11 | CR ---
Chest: Portable view of the chest was obtained. Comparison: Prior chest x-ray of 11/06/18. Heart is mildly enlarged. Upper mediastinum is normal. Pacemaker is present. Lungs are clear with no acute parenchymal change. Bony structures are grossly intact. Impression: 1. Findings as noted above. Nothing acute is seen. Diagnostic code #2
== END 2019-02-25 18:10 ==
LOC: SUPCPDRO 15:01 → JD.ED 15:01
DX: I95.9 Hypotension, unspecified (principal); N28.9 Disorder of kidney and ureter, unspecified; E86.0 Dehydration; R07.89 Other chest pain; I11.0 Hypertensive heart disease with heart failure; I50.9 Heart failure, unspecified; I25.2 Old myocardial infarction; Z95.0 Presence of cardiac pacemaker; M19.90 Unspecified osteoarthritis, unspecified site; E11.9 Type 2 diabetes mellitus without complications; E66.9 Obesity, unspecified; Z95.5 Presence of coronary angioplasty implant and graft; Z79.82 Long term (current) use of aspirin; Z79.899 Other long term (current) drug therapy; Z87.891 Personal history of nicotine dependence
CPT/HCPCS: 36415; 71045; 80053; 83880; 84484; 85025; 93005; 96374; 99285; J1170; J7040